=== PATIENT | female | born 1980 | race Caucasian/White ===

== ENCOUNTER 2018-10-18 09:49 | Emergency (ER) | payer MEDICAID, OTHER, SELFPAY ==
[~2018-10-18] VITALS: Ht 167.6 cm; Wt 74.0 kg
[2018-10-18 10:01] VITALS: BP 108/74
--- NOTE | 2018-10-18 10:16 | NUR ---
pt in room in her clothes. pt instructed to get into gown for assessment. pt argues with this rn regarding the need for gown. pt educated on the need for assessment and offered a warm blanket after changing.
[2018-10-18 10:40] LABS: CULTURE INDICATED? YES; MICROSCOPIC INDICATED
--- NOTE | 2018-10-18 11:31 | NUR ---
went to room to check on pt. gown on floor and pt not found in room.
== END 2018-10-18 11:41 | disposition left against medical advice (07) ==
LOC: ED 10:15
DX: N30.01 Acute cystitis with hematuria (principal); F17.200 Nicotine dependence, unspecified, uncomplicated
CPT/HCPCS: 81001; 87086; 99283